=== PATIENT | male | born 1975 | race American Indian/Alaskan Native ===

== ENCOUNTER 2017-10-16 08:07 | Observation (INO) | payer MEDICAID ==
[2017-10-16] MEDS ORDERED: NACL 0.9% 1 ML, VANCOMYCIN VIAL 1,000 MG IR ONE (08:50)
[2017-10-16 09:18] LABS: Basophils % (Auto) 0.9 % (0.0-1.8); Eosinophils % (Auto) 2.3 % (0.0-4.3); Hemoglobin 15.7 gm/dl (11.8-15.2); Mean Corpuscular HGB Conc 34 % (32-34); Mean Corpuscular Hemoglobin 31 pg (28-32); Mean Corpuscular Volume 92 fl (84-94); Platelet Count 295 K/mm3 (140-440); Red Blood Count 5.02 M/mm3 (3.65-5.03); Red Cell Distribution Width 13.1 % (13.2-15.2); White Blood Count 6.7 K/mm3 (4.5-11.0)
[2017-10-16 09:29] LABS: INR 1.04 (0.87-1.13)
[2017-10-16 09:30] LABS: Partial Thromboplastin Time 26.7 Sec. (24.2-36.6)
[2017-10-16 09:36] LABS: Anion Gap 16 mmol/L; BUN/Creatinine Ratio 13; Blood Urea Nitrogen 12 mg/dL (9-20); Calcium 8.8 mg/dL (8.4-10.2); Carbon Dioxide 27 mmol/L (22-30); Chloride 100.9 mmol/L (98-107); Glucose 192 mg/dL (75-100); Potassium 4.6 mmol/L (3.6-5.0); Sodium 139 mmol/L (137-145)
[2017-10-16] MEDS: NACL 0.45% 1000 ML 1,000 ML IV SCH ×2 (09:53→21:36)
[2017-10-16] MEDS ORDERED: XYLOCAINE 1% 20 mL ONE (11:25)
[2017-10-16] MEDS ORDERED: MARCAINE 0.5% 60 ML INFILTRATI ONE (11:25)
[2017-10-16] MEDS ORDERED: NACL 0.9% 500 ML IR ONE (11:25)
[2017-10-16] MEDS ORDERED: ANCEF/STERILE WATER 2 GM/20 ML 2 GM/20 ML SYRINGE IV ONE (11:25)
[2017-10-16] MEDS: SUBLIMAZE ONE ×6 (12:14→13:28)
[2017-10-16] MEDS: VERSED IV ONE ×4 (12:14→13:28)
[2017-10-16] MEDS: ANCEF/STERILE WATER 2 GM/20 ML 2 GM/20 ML SYRINGE IV NR ×2 (12:20→12:33)
[2017-10-16] MEDS ORDERED: ANCEF/NS 1 GM/50 ML 1 GM/50 ML BAG IV SCH (15:00)
--- NOTE | 2017-10-16 15:13 | XRay Report ---
AP CHEST: HISTORY: Post operative pacemaker placement A single lead pacemaker device has been inserted since 11/12/16 which overlies the junction of the right atrium and right ventricle. Please correlate with the image. Heart and mediastinal structures are within normal limits. The lungs are clear. No pneumothorax. Radiopaque foreign bodies overlying the mediastinum are unchanged. IMPRESSION: Pacemaker placement as described. No acute process.
[2017-10-16] MEDS: NORCO 5/325 PO PRN ×2 (15:26→21:34)
[2017-10-16] MEDS: HABITROL TD SCH (15:27)
[2017-10-16] MEDS: COREG PO SCH (21:35)
[2017-10-16] MEDS: ceFAZolin 1 GM in NACL 0.9% 20 ML IV SCH (21:36)
[2017-10-16] MEDS ORDERED: ENTRESTO PO SCH (22:00)
[2017-10-17] MEDS: NORCO 5/325 PO PRN (04:56)
[2017-10-17] MEDS: ceFAZolin 1 GM in NACL 0.9% 20 ML IV SCH (04:57)
[2017-10-17 09:33] VITALS: BP 119/82
[2017-10-17] MEDS ORDERED: LANOXIN PO SCH (10:00)
[2017-10-17] MEDS ORDERED: FISH OIL PO SCH (10:00)
[2017-10-17] MEDS ORDERED: K-DUR PO SCH (10:00)
[2017-10-17] MEDS ORDERED: ASPIRIN PO SCH (10:00)
[2017-10-17] MEDS ORDERED: BUMEX PO SCH (10:00)
[2017-10-17] MEDS ORDERED: PLAVIX PO SCH (10:00)
--- NOTE | 2017-10-17 10:00 | Short Stay Summary ---
Short Stay Documentation Date of service: 10/17/17 - History H&P: obtained from office - Allergies and Medications Current Medications: Allergies No Known Allergies Allergy (Verified 11/12/16 07:24) Home Medications Medication Instructions Recorded Confirmed Last Taken Type Aspirin [Aspirin TAB] 325 mg PO QDAY #30 tablet 02/10/15 10/16/17 10/16/17 07: 15 Rx Clopidogrel [Plavix] 75 mg PO QDAY #30 tablet 02/10/15 10/16/17 10/16/17 07:15 Rx Metformin HCl [Fortamet ER] 1,000 mg PO BID #60 tab.er.24 02/10/15 10/16/17 Rx Nicotine [Habitrol] 21 mg TD QDAY #20 patch 02/10/15 10/16/17 1 Month Ago Rx ~09/15/17 Simvastatin [Zocor TAB] 20 mg PO QHS #30 tablet 02/10/15 10/16/17 10/15/17 Rx Bumetanide 0.5 mg PO QDAY 10/16/17 10/16/17 10/16/17 07:15 History Carvedilol [Coreg] 6.25 mg PO BID 10/16/17 10/16/17 10/16/17 07:15 History Digoxin [Lanoxin] 0.125 mg PO DAILY 10/16/17 10/16/17 10/16/17 07:15 History Entresto 49 mg-51 mg Tablet 1 tab PO BID 10/16/17 10/16/17 10/16/17 07:15 History Insulin Aspart Prot/Insuln Asp 15 units SQ QHS 10/16/17 10/16/17 10/14/17 History [Novolog Mix 70-30 Flexpen Syrn] Novolog Mix 70-30 Flexpen Syrn 10 units SQ QAM 10/16/17 10/16/17 10/15/17 History [place]-3 Fatty Acids/Fish Oil [Fish 1 cap PO DAILY 10/16/17 10/16/17 10/16/17 07: 15 History Oil] Potassium Chloride 20 meq PO QDAY 10/16/17 10/16/17 10/16/17 07:15 History Active Medications Acetaminophen/Hydrocodone Bitart (Neffs 5/325) 1 each PO Q6H PRN PRN Reason: Pain, Moderate (4-6) Last Admin: 10/17/17 04:56 Dose: 1 each Aspirin (Aspirin) 325 mg PO QDAY [facility] Bumetanide (Bumex) 0.5 mg PO QDAY [facility] Carvedilol (Coreg) 6.25 mg PO BID [facility] Last Admin: 10/16/17 21:35 Dose: 6.25 mg Clopidogrel Bisulfate (Plavix) 75 mg PO QDAY [facility] Digoxin (Lanoxin) 0.125 mg PO DAILY [facility] Fish Oil (Fish Oil) 1,000 mg PO DAILY [facility] Sodium Chloride (Nacl 0.45% 1000 Ml) 1,000 mls @ 50 mls/hr IV DIRECT [facility] Last Admin: 10/16/17 21:36 Dose: 50 mls/hr Miscellaneous Medication (Entresto 49 Mg-51 Mg Tablet) 1 tab PO BID [facility] Nicotine (Habitrol) 14 mg TD QDAY [facility] Last Admin: 10/16/17 15:27 Dose: 14 mg Potassium Chloride (K-Dur) 20 meq PO QDAY [facility] - Brief post op/procedure progress note Date of procedure: 10/16/17 Pre-op diagnosis: CMP Post-op diagnosis: same Procedure: AICD implantation Anesthesia: local Estimated blood loss: none Condition: stable - Hospital course Hospital course: pt presented for scheduled elective AICD implantation. He successfully underwent AICD implantation and was admitted for overnight observation. Post- procedure CXR showed NAF, no pneumothorax. Device interrogation this AM showed normal device function. Left pectoralis PPM implantation site pressure dressing removed, telfa and tegaderm dressing c/d/i with no evidence of bleeding or hematoma. Left arm immobilizer in place. - Disposition Condition at discharge: Stable Disposition: DC- TO HOME OR SELFCARE - Discharge Diagnoses (1) Cardiomyopathy Status: Chronic (2) Hyperlipidemia Status: Chronic (3) Tobacco abuse Status: Chronic (4) CAD (coronary artery disease) Status: Chronic (5) Diabetes mellitus Status: Chronic (6) HTN (hypertension) Status: Chronic (7) Automatic implantable cardioverter-defibrillator in situ Status: Chronic Short Stay Discharge Plan Activity: advance as tolerated, other (as per discharge instructions) Diet: low fat, low cholesterol, low salt Wound: other (as per discharge instructions) Durable Medical Equipment Needed Upon Discharge: other (left arm immobilizer) Follow up with: SUMANTH YOU MD [Primary Care Provider] - 7 Days GABRIELA BAKER MD [Staff Physician] - 7 Days ([place] office 2016 @ 2:30PM) Prescriptions: HYDROcodone/APAP 5-325 [Neffs 5-325 mg TAB] 1 each PO Q6H PRN #30 tablet PRN Reason: Pain, Moderate (4-6)
[2017-10-17] MEDS: HABITROL TD SCH (10:56)
[2017-10-17] MEDS: COREG PO SCH (10:56)
== END 2017-10-17 12:50 | disposition home or self-care (01) ==
LOC: CATHLABREC 08:07 → 4A 11:42
PROVIDERS: ADMIT Internal Medicine Cardiovascular Disease; ATTEND Internal Medicine Cardiovascular Disease
DX: I42.0 Dilated cardiomyopathy (principal); I25.10 Atherosclerotic heart disease of native coronary artery without angina pectoris; E11.9 Type 2 diabetes mellitus without complications; I11.0 Hypertensive heart disease with heart failure; I50.20 Unspecified systolic (congestive) heart failure; E78.5 Hyperlipidemia, unspecified; F17.210 Nicotine dependence, cigarettes, uncomplicated; E66.9 Obesity, unspecified
CPT/HCPCS: 33249; 36415; 71010; 80048; 82962; 85025; 85610; 85730; 93005; 93010; 96374; 96376; C1722; C1892; C1894; C1895; G0378; J0690; J2250; J3010; J3370; Q9967